=== PATIENT | female | born 1995 | race Caucasian/White ===

== ENCOUNTER 2019-10-06 21:51 | Emergency (ER) | payer BC ==
[2019-10-06] MEDS ORDERED: LAMICTAL 100MG100 MG PO (22:02)
[2019-10-06] MEDS ORDERED: SEROQUEL50 MG PO (22:02)
[2019-10-06] MEDS ORDERED: INDERAL 10MG10 MG PO (22:09)
[2019-10-06] MEDS ORDERED: CYCLOBENZAPRINE10 M1 PO (22:59)
[2019-10-06 23:05] VITALS: BP 112/66
== END 2019-10-06 23:05 | disposition home or self-care (01) ==
LOC: ED 21:51
DX: S16.1XXA Strain of muscle, fascia and tendon at neck level, initial encounter (principal); F31.9 Bipolar disorder, unspecified; X50.1XXA Overexertion from prolonged static or awkward postures, initial encounter; Y92.009 Unspecified place in unspecified non-institutional (private) residence as the place of occurrence of the external cause
CPT/HCPCS: J1885; J2360